=== PATIENT | female | born 1980 | race Hispanic/Latino ===

== ENCOUNTER → 2017-12-19 | Outpatient (CLI) | payer MEDICARE ==
[~2017-12-19] MED LIST: ABILIFY15 MG PO; ATORVASTATIN CA20 MG PO; AUGMENTIN 875-1 EACH PO; BENZTROPINE MESY1 MG PO; BUSPIRONE HCL15 MG PO; HYDROXYZINE HCL25 MG PO; HYDROXYZINE HCL50 MG PO; IMITREX25 MG; LATUDA80 MG PO; LISINOPRIL-HCT1 EACH PO; MACROBID 100 M100 MG PO; NAPROXEN500 MG PO; NEURONTIN300 MG PO; PROPRANOLOL HCL10 MG PO; TOPAMAX50 MG PO; TOPIRAMATE50 MG PO; TRI-SPRINTEC1 EACH PO; TRILEPTAL600 MG PO; ULTRAM 50MG50 MG PO; VALTREX500 MG PO; ZOFRAN4 MG SL; ZOLOFT100 MG PO
--- NOTE | 2018-01-09 08:28 | Diagnostic Imaging Report ---
#[id number] - MGSCRBIL #BILATERAL DIGITAL SCREENING MAMMOGRAM WITH CAD: 12/19/2017 CLINICAL: Routine screening. Comparison to exams dated 03/10/2016 and 01/27/2016 from [facility] is not currently possible due to PACS retrieval difficulty. Current study contains 4 films. The tissue of both breasts is extremely dense, which lowers the sensitivity of mammography. Current study was also evaluated with a Computer Aided Detection (CAD) system. There are benign calcifications in both breasts. No significant masses, calcifications, or other findings are seen in either breast. There has been no significant interval change. IMPRESSION: BENIGN There is no mammographic evidence of malignancy. A 2 year screening mammogram is recommended. The patient will be notified by letter of the results. Jigar Raymundo Jr., D.O. cw/:01/06/2018 14:54:09 Hot Oiler: Laney OQUENDO(David)(Malcolm), [facility] letter sent: Normal Exam Mammogram BI-RADS: 2 Benign
== END ==
LOC: MAMMO 12:07
PROVIDERS: ATTEND Family Medicine
DX: Z12.31 Encounter for screening mammogram for malignant neoplasm of breast (principal)
CPT/HCPCS: 77067

== ENCOUNTER → 2019-05-03 | Outpatient (CLI) | payer MEDICARE | LOC: MAMMO 08:21 | PROVIDERS: ATTEND Family Medicine | DX: Z12.31 Encounter for screening mammogram for malignant neoplasm of breast (principal) | CPT/HCPCS: 77067 ==

== ENCOUNTER → 2019-12-05 | Outpatient (CLI) | payer MEDICARE ==
--- NOTE | 2019-12-05 09:32 | Diagnostic Imaging Report ---
TECHNIQUE: Magnetic resonance imaging of the LEFT KNEE was performed WITHOUT injected contrast. HISTORY: Left knee pain, peripheral tear of medial meniscus COMPARISON: None available. FINDINGS: LIGAMENTS AND TENDONS: ACL: Intact PCL: Intact Collateral ligaments: Increased signal within the soft tissues overlying the medial collateral ligament, especially along the distal aspect near the tibial insertion, may represent low-grade sprain. Lateral collateral ligament is intact and unremarkable. Iliotibial band: Unremarkable Popliteal tendon: Intact Extensor mechanism: Intact JOINT: Menisci: Medial: Intact Lateral: Intact Articular Cartilage: Medial Compartment: No focal defect. Lateral Compartment: No focal defect. Patellofemoral Compartment: No focal defect. Joint Fluid: The amount of fluid within the joint is within physiologic limits. BONE: Focal subchondral bone marrow edema along the anteromedial aspect of the proximal tibia, without definite cortical disruption, likely represents bone marrow contusion in setting of trauma. No infiltrative bone marrow replacing signal abnormality. SOFT TISSUES: Mild diffuse soft tissue edema overlying the anterior medial aspect of the proximal tibia. IMPRESSION: 1. Small bone marrow contusion at the anteromedial aspect of the proximal tibia with overlying soft tissue edema and contusion. 2. Increased signal overlying the medial collateral ligament, may represent low-grade MCL sprain. 3. Medial and lateral menisci are intact. No additional ligament or tendon injury. Signed by: Dr. Vu Mancilla M.D. on 12/05/2019 9:29 AM
== END ==
LOC: MRI 07:38
PROVIDERS: ATTEND Specialist
DX: S83.222A Peripheral tear of medial meniscus, current injury, left knee, initial encounter (principal)

== ENCOUNTER → 2020-04-25 | Outpatient (CLI) | payer MEDICARE | LOC: RAD 08:08 | PROVIDERS: ATTEND Student in an Organized Health Care Education/Training Program | DX: R07.81 Pleurodynia (principal) | CPT/HCPCS: 71046 ==